=== PATIENT | female | born 1985 | race Caucasian/White ===

== ENCOUNTER 2018-01-27 06:11 | Day surgery (SDC) | payer OTHER ==
[2018-01-23 16:29] VITALS: BMI 34.3
[2018-01-27] MEDS ORDERED: LIDOCAINE HCL/PF 2% SDV 5ML VIAL ONE (07:15)
[2018-01-27] MEDS ORDERED: ceFAZolin SODIUM 1 GM VIAL ONE (07:15)
[2018-01-27] MEDS ORDERED: DEXAMETHASONE SOD PHOSPHATE 4 MG/1 ML VIAL ONE (07:15)
[2018-01-27] MEDS ORDERED: SODIUM CHLORIDE 0.9% P/F 10 ML VIAL IJ ONE (07:15)
[2018-01-27] MEDS ORDERED: ONDANSETRON 4 MG/2 ML VIAL ONE (07:15)
[2018-01-27] MEDS ORDERED: SUCCINYLCHOLINE CHLORIDE 200 MG/10 ML VIAL ONE (07:18)
[2018-01-27] MEDS ORDERED: PROPOFOL 20 ML ONE ×2 (07:18→07:41)
[2018-01-27] MEDS ORDERED: MIDAZOLAM HCL 2 MG/2 ML SINGLE DOSE VIAL ONE (07:21)
[2018-01-27] MEDS ORDERED: fentaNYL CITRATE 250 MCG/5 ML VIAL ONE (07:21)
[2018-01-27] MEDS ORDERED: KETOROLAC TROMETHAMINE 30 MG/1 ML VIAL ONE ×2 (07:57→08:29)
[2018-01-27] MEDS ORDERED: BUPIVACAINE HCL 0.25% 125 MG/50 ML VIAL ONE (08:04)
[2018-01-27] MEDS ORDERED: BUPIVACAINE HCL/PF 0.25% (2.5MG/ML) 10 ML VIAL IJ ONE (08:13)
[2018-01-27] MEDS ORDERED: ONDANSETRON 4 MG/2 ML VIAL IVPUSH PRN (08:28)
[2018-01-27] MEDS ORDERED: PROMETHAZINE HCL 25 MG/1 ML VIAL IVPUSH PRN (08:28)
[2018-01-27] MEDS ORDERED: oxyCODONE HCL 5 MG TABLET PO PRN ×2 (08:28)
[2018-01-27] MEDS ORDERED: KETOROLAC TROMETHAMINE 15 MG/ML VIAL IVPUSH ONE (08:29)
--- NOTE | 2018-01-27 08:53 | OP ---
DATE OF OPERATION: 01/27/2018 PREOPERATIVE DIAGNOSIS: Right 5th carpometacarpal fracture-dislocation. POSTOPERATIVE DIAGNOSIS: Right 5th carpometacarpal fracture-dislocation. OPERATIVE PROCEDURE: 1. Closed reduction and percutaneous pinning of right 5th metacarpal. 2. Closed reduction and percutaneous pinning of right 5th carpometacarpal dislocation. SURGEON: Amish Kunz MD NYLON OPERATOR: DENISE Elliott ANESTHESIA: General. COMPLICATIONS: None. ESTIMATED BLOOD LOSS: Minimal. INDICATION FOR PROCEDURE: The patient is a 33-year-old female with the above finding indicated for operative treatment. The risks, benefits, and alternatives were discussed with the patient at length. Proper informed consent was obtained. DESCRIPTION OF PROCEDURE: After proper identification of the patient and the correct operative site, patient brought to the operating room and placed supine on the table. All prominences well padded. General anesthesia was provided by the anesthesiologist. Intravenous antibiotics were given. Timeout procedure was performed. Right upper extremity was prepped and draped in the usual sterile fashion. Under live fluoroscopy, the fracture and dislocation were reduced. K-wires were then placed across the fracture site and then from the 5th to the 4th metacarpals to reduce both the fracture and the dislocation. This provided secure, satisfactory fixation of the fracture and dislocation. Radiographs were taken to confirm this. Pins were cut short and bent outside of the skin. Sterile dressings were applied. Splint was placed. Patient was reversed from anesthesia and brought to recovery in stable condition. Steve Terrell, the delinquent tax collector assistant, was integral throughout the procedure. Procedure could not have been performed without a skilled operative delinquent tax collector assistant. It was necessary for DENISE Terrell to hold the reduction which could not have been done by another delinquent tax collector assistant, while I placed K-wires to secure fixation. AMISH KUNZ M.D. [id number]
[2018-01-27] MEDS ORDERED: oxyCODONE HCL 5 MG TABLET ONE (09:31)
[2018-01-27 10:15] VITALS: BP 122/82; PULSE 65; TEMP 98
== END 2018-01-27 10:16 | disposition home or self-care (01) ==
LOC: FASU 06:11 → EDBD 07:30 → FASU 10:16
PROVIDERS: ATTEND Orthopaedic Surgery Hand Surgery
PROC: 0RHS34Z Insertion of Internal Fixation Device into Right Carpometacarpal Joint, Percutaneous Approach (ICD-10-PCS; 2018-01-27)
PROC: 0PSP34Z Reposition Right Metacarpal with Internal Fixation Device, Percutaneous Approach (ICD-10-PCS; principal; 2018-01-27 07:30)
DX: S62.316A Displaced fracture of base of fifth metacarpal bone, right hand, initial encounter for closed fracture (principal); X58.XXXA Exposure to other specified factors, initial encounter; Y93.9 Activity, unspecified; Y92.9 Unspecified place or not applicable
CPT/HCPCS: 73130-TC-RT-FY; 84703; 94760